=== PATIENT | female | born 2000 | race Caucasian/White ===

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

== ENCOUNTER 2023-05-01 06:35 | Inpatient (IN) | payer MEDICAID ==
[2023-05-01] MEDS ORDERED: Sodium Chloride 0.9% 20 ML SDV IV PRN (07:57)
[2023-05-01] MEDS ORDERED: ceFAZolin 2 GM in Sodium Chloride 0.9% 50 ML IV ONE (07:57)
[2023-05-01] MEDS ORDERED: Citric Acid/Sodium Citrate Solution 30 ML Cup PO ONE (07:57)
[2023-05-01] MEDS ORDERED: Sodium Chloride 0.9% 2.5 ML Syringe FLUSH PRN (07:57)
[2023-05-01] MEDS ORDERED: Sodium Chloride 0.9% 10 ML Syringe FLUSH PRN (07:57)
[2023-05-01] MEDS ORDERED: Oxytocin/0.9 % Sodium Chloride 30 UNIT/500 ML BAG IV SCH (08:00)
[2023-05-01 08:08] LABS: HEMATOCRIT 29.2 % (37.0-47.0); HEMOGLOBIN 8.3 g/dL (12.0-16.0); MEAN CORPUSCULAR HEMOGLOBIN 17.7 pg (28.0-32.0); NRBC ABSOLUTE 0.02 K/uL (0.00-0.02); NRBC PERCENT 0.2 /100WBC (0.0-0.2); PLATELET COUNT,PLT 196 K/uL (150-400); RED BLOOD CELL COUNT 4.69 M/uL (4.10-5.30); WHITE BLOOD CELL COUNT,WBC 10.87 K/uL (3.9-11.3)
[2023-05-01 08:09] LABS: BILIRUBIN,URINE NEGATIVE (NEGATIVE); COLOR,URINE YELLOW; GLUCOSE,URINE NEGATIVE (NEGATIVE); KETONES,URINE >=80 mg/dL (NEGATIVE); LEUKOCYTE ESTERASE,URINE NEGATIVE (NEGATIVE); NITRITE,URINE NEGATIVE (NEGATIVE); OCCULT BLOOD,URINE NEGATIVE (NEGATIVE); PH,URINE 5.5 (5.0-8.0); PROTEIN,URINE NEGATIVE (NEGATIVE); UROBILINOGEN,URINE 0.2 EU/dL (<2.0)
[2023-05-01 08:12] LABS: APPEARANCE,URINE HAZY
[2023-05-01 08:17] LABS: AMPHETAMINES SCREEN, URINE NEGATIVE (CUTOFF=500); BARBITURATE SCREEN,URINE NEGATIVE (CUTOFF=200); BENZODIAZEPINES SCREEN,URINE NEGATIVE (CUTOFF=150); BUPRENORPHINE SCREEN,URINE NEGATIVE (CUTOFF=10); METHADONE SCREEN, URINE NEGATIVE (CUTOFF=200); METHAMPHETAMINES SCREEN, URINE NEGATIVE (CUTOFF=500); OXYCODONE SCREEN,URINE NEGATIVE (CUT0FF=100); PCP SCREEN,URINE NEGATIVE (CUTOFF=25); THC SCREEN,URINE 20 NG/ML NEGATIVE (CUTOFF=50)
[2023-05-01] MEDS ORDERED: Morphine 2 MG/ML SYRINGE IVPUSH PRN (08:18)
[2023-05-01] MEDS ORDERED: Metoclopramide 10 MG/2 ML SDV IVPUSH PRN (08:18)
[2023-05-01] MEDS ORDERED: fentaNYL 50 MCG/ML SDV IVPUSH PRN (08:18)
[2023-05-01] MEDS ORDERED: fentaNYL 100 MCG/2 ML SDV IVPUSH PRN (08:18)
[2023-05-01] MEDS ORDERED: Acetaminophen/oxyCODONE 325-5 MG Tab PO PRN (08:18)
[2023-05-01] MEDS ORDERED: ePHEDrine 50 MG/ML SDV IVPUSH PRN (08:18)
[2023-05-01] MEDS ORDERED: Ondansetron 4 MG/2 ML SDV IVPUSH PRN ×3 (08:18→14:42)
[2023-05-01] MEDS ORDERED: droPERidol 5 MG/2 ML SDV IVPUSH PRN (08:18)
[2023-05-01] MEDS ORDERED: Naloxone 0.4 MG/ML SDV IVPUSH PRN (08:18)
[2023-05-01] MEDS ORDERED: HYDROmorphone 1 MG/ML Syringe IVPUSH PRN (08:18)
[2023-05-01] MEDS ORDERED: Albuterol 0.083% 2.5 MG/3 ML Neb Soln NEB PRN (08:18)
[2023-05-01] MEDS ORDERED: ceFAZolin 1 GM Vial ONE (08:27)
[2023-05-01] MEDS ORDERED: Oxytocin 10 Units/1 ML SDV ONE (08:27)
[2023-05-01] MEDS ORDERED: Ketorolac 30 MG/ML SDV ONE (08:27)
[2023-05-01] MEDS ORDERED: dexmedeTOMIDine HCl 200 MCG/2 ML SDV ONE (08:27)
[2023-05-01] MEDS ORDERED: Tranexamic Acid 1,000 MG/10 ML Vial ONE (08:27)
[2023-05-01] MEDS ORDERED: Dexamethasone 4 MG/ML 5 ML MDV ONE (08:27)
[2023-05-01] MEDS ORDERED: Ondansetron 4 MG/2 ML SDV ONE (08:27)
[2023-05-01] MEDS ORDERED: Water For Injection, Sterile 20 ML ONE (08:27)
[2023-05-01] MEDS ORDERED: Ropivacaine 0.5% 5 MG/ML 30 ML SDV ONE (08:27)
[2023-05-01] MEDS ORDERED: Morphine PF 10 MG/10 ML SDV ONE (08:28)
[2023-05-01] MEDS ORDERED: fentaNYL 100 MCG/2 ML SDV ONE (08:28)
[2023-05-01] MEDS ORDERED: Phenylephrine 1% 10 MG/ML SDV ONE (08:30)
[2023-05-01] MEDS ORDERED: ePHEDrine 50 MG/ML SDV ONE (08:30)
[2023-05-01 09:12] LABS: MEAN CORPUSCULAR HGB CONC 28.4 g/dL (32.0-36.0); MEAN CORPUSCULAR VOLUME 62.3 fL (83.0-99.0)
[2023-05-01] MEDS: Lactated Ringers 1,000 ML IV SCH ×2 (09:15→13:53)
[2023-05-01 09:41] LABS: C. TRACHOMATIS BY PCR NOT DETECTED; N. GONORRHOEAE BY PCR NOT DETECTED
[2023-05-01] MEDS ORDERED: Propofol 200 MG/20 ML SDV ONE (10:59)
[2023-05-01] MEDS: Acetaminophen 1,000 MG in Premix Bag 1 BAG IV SCH ×2 (13:54→20:15)
[2023-05-01] MEDS ORDERED: oxyCODONE 5 MG Tab PO PRN (14:33)
[2023-05-01] MEDS ORDERED: Naloxone 0.4 MG/ML SDV IVPUSH ONE (14:41)
[2023-05-01] MEDS ORDERED: Acetaminophen 500 MG Tab PO SCH (14:45)
[2023-05-01] MEDS ORDERED: Ketorolac 30 MG/ML SDV IVPUSH SCH (14:45)
[2023-05-01] MEDS ORDERED: Diphtheria,Pertussis(Acell),Tetanus Vaccine 0.5 ML Syringe IM ONE (14:50)
[2023-05-01] MEDS: diphenhydrAMINE 50 MG/ML SDV IVPUSH PRN ×2 (15:12→20:36)
[2023-05-01] MEDS ORDERED: Methylergonovine 0.2 MG/1 ML Amp IM PRN (16:06)
[2023-05-01] MEDS ORDERED: Carboprost Tromethamine 250 MCG/1 mL Vial IM ONE (16:10)
[2023-05-01] MEDS ORDERED: Tranexamic Acid 1,000 MG in Sodium Chloride 0.9% 100 ML IV PRN (16:11)
[2023-05-01] MEDS ORDERED: Misoprostol 200 MCG Tab RECTAL PRN (16:13)
[2023-05-01] MEDS: Ketorolac 30 MG/ML SDV IVPUSH SCH (18:15)
[2023-05-01] MEDS: Docusate Sodium 100 MG Cap PO PRN (20:35)
[2023-05-02] MEDS: Ketorolac 30 MG/ML SDV IVPUSH SCH ×3 (00:24→12:50)
[2023-05-02] MEDS: Acetaminophen 1,000 MG in Premix Bag 1 BAG IV SCH ×2 (02:09→08:25)
[2023-05-02 03:06] LABS: GROUP B STREP BY PCR NEGATIVE (NEGATIVE)
[2023-05-02 06:12] LABS: HEMATOCRIT 26.6 % (37.0-47.0); HEMOGLOBIN 7.2 g/dL (12.0-16.0)
[2023-05-02] MEDS: Acetaminophen 500 MG Tab PO SCH ×3 (08:38→20:23)
[2023-05-02] MEDS: Docusate Sodium 100 MG Cap PO PRN ×2 (08:43→20:24)
[2023-05-02] MEDS: Sodium Ferric Gluconate Cmplex 125 MG in Sodium Chloride 0.9% 100 ML IV SCH (09:39)
[2023-05-02] MEDS: Ibuprofen 800 MG Tab PO SCH ×2 (13:00→20:23)
[2023-05-02] MEDS ORDERED: Ibuprofen 800 MG Tab PO PRN (14:35)
[2023-05-03] MEDS: Acetaminophen 500 MG Tab PO SCH (02:02)
[2023-05-03] MEDS: Ibuprofen 800 MG Tab PO SCH ×2 (04:49→13:07)
[2023-05-03] MEDS: Sodium Ferric Gluconate Cmplex 125 MG in Sodium Chloride 0.9% 100 ML IV SCH (10:11)
== END 2023-05-03 17:24 | disposition home or self-care (01) | DRG 788 ==
LOC: MW.OBCHECK 06:35 → MW.OB 06:36 → MW.OBCHECK 08:08 → MW.OB 08:09 → OBSVTOIN 08:09 → MW.OB 16:40
PROVIDERS: ADMIT Obstetrics & Gynecology; ATTEND Obstetrics & Gynecology
PROC: 10D00Z1 Extraction of Products of Conception, Low, Open Approach (ICD-10-PCS; principal; 2023-05-01 10:30)
DX: O34.211 Maternal care for low transverse scar from previous cesarean delivery (principal); O35.2XX0 Maternal care for (suspected) hereditary disease in fetus, not applicable or unspecified; O99.03 Anemia complicating the puerperium; Z37.0 Single live birth
CPT/HCPCS: 36415; 59025; 76815; 76815-26; 80305-QW; 81003; 85014; 85018; 85027; 86592; 86762; 86803; 86850; 86900; 86901; 87340; 87389; 87491; 87591; 87653; A9270-GY; J0131; J0690; J1100; J1200; J1885; J2274; J2371; J2405; J2590; J2704; J2795; J2916; J3010; J3490; J7120

== ENCOUNTER 2023-06-03 23:29 | Emergency (ER) | payer MEDICAID ==
[2023-06-03] MEDS ORDERED: Sodium Chloride 0.9% 10 ML Syringe FLUSH PRN (23:34)
[2023-06-03] MEDS ORDERED: Sodium Chloride 0.9% 2.5 ML Syringe FLUSH PRN (23:34)
[2023-06-04 00:11] LABS: BASOPHILS ABSOLUTE AUTO 0.04 K/uL (0.00-0.20); BASOPHILS PERCENT AUTO 0.6 % (0.0-1.0); EOSINOPHILS ABSOLUTE AUTO 0.13 K/uL (0.00-0.45); HEMATOCRIT 39.1 % (37.0-47.0); HEMOGLOBIN 11.8 g/dL (12.0-16.0); IMMATURE GRAN ABSOLUTE AUTO 0.02 K/uL (0.00-0.05); IMMATURE GRAN PERCENT AUTO 0.3 % (0.0-0.4); LYMPHOCYTES ABSOLUTE AUTO 1.67 K/uL (1.00-4.80); MEAN CORPUSCULAR HEMOGLOBIN 22.1 pg (28.0-32.0); MEAN CORPUSCULAR HGB CONC 30.2 g/dL (32.0-36.0); MEAN CORPUSCULAR VOLUME 73.4 fL (83.0-99.0); MONOCYTES ABSOLUTE AUTO 0.28 K/uL (0.00-0.80); MONOCYTES PERCENT AUTO 4.4 % (0.0-8.0); NEUTROPHILS ABSOLUTE AUTO 4.28 K/uL (1.80-7.70); NEUTROPHILS PERCENT AUTO 66.7 % (41.0-71.0); PLATELET COUNT,PLT 157 K/uL (150-400); RED BLOOD CELL COUNT 5.33 M/uL (4.10-5.30); WHITE BLOOD CELL COUNT,WBC 6.42 K/uL (3.9-11.3)
[2023-06-04 00:42] LABS: A/G RATIO 1.2 (0.9-1.6); ALBUMIN 4.5 g/dL (3.4-5.0); BILIRUBIN TOTAL 0.4 mg/dL (0.2-1.0); CALCIUM 9.6 mg/dL (8.5-10.1); CARBON DIOXIDE,CO2 22.1 mmol/L (21.0-32.0); EST CRCL DRUG DOSING (CG) 67.15 mL/min; POTASSIUM,K 3.1 mmol/L (3.5-5.1); PROTEIN TOTAL,TP 8.4 g/dL (6.4-8.2)
[2023-06-04 00:44] LABS: LACTIC ACID 1.9 mmol/L (0.4-2.0)
[2023-06-04] MEDS ORDERED: Iopamidol 755 MG/ML 500 ML Multipack Bottle IVPUSH STA (01:29)
== END 2023-06-04 02:46 | disposition home or self-care (01) ==
LOC: MW.ED 23:29
DX: G89.18 Other acute postprocedural pain (principal)
CPT/HCPCS: 36415; 74177; 74177-26; 80053; 83605; 85025; 99284; J3490; Q9967

== ENCOUNTER 2023-11-25 07:51 | Emergency (ER) | payer SELFPAY ==
[2023-11-25] MEDS: Sodium Chloride 0.9% 1,000 ML IV ONE (08:16)
[2023-11-25 08:21] LABS: BASOPHILS ABSOLUTE AUTO 0.04 K/uL (0.00-0.20); BASOPHILS PERCENT AUTO 0.4 % (0.0-1.0); EOSINOPHILS ABSOLUTE AUTO 0.17 K/uL (0.00-0.45); EOSINOPHILS PERCENT AUTO 1.8 % (0.0-6.0); HEMATOCRIT 38.5 % (37.0-47.0); HEMOGLOBIN 12.4 g/dL (12.0-16.0); IMMATURE GRAN ABSOLUTE AUTO 0.02 K/uL (0.00-0.05); IMMATURE GRAN PERCENT AUTO 0.2 % (0.0-0.4); LYMPHOCYTES ABSOLUTE AUTO 1.99 K/uL (1.00-4.80); LYMPHOCYTES PERCENT AUTO 20.9 % (24.0-44.0); MEAN CORPUSCULAR HEMOGLOBIN 24.7 pg (28.0-32.0); MEAN CORPUSCULAR HGB CONC 32.2 g/dL (32.0-36.0); MEAN CORPUSCULAR VOLUME 76.7 fL (83.0-99.0); MEAN PLATELET VOLUME 12.5 fL (9.4-12.3); MONOCYTES ABSOLUTE AUTO 0.48 K/uL (0.00-0.80); NEUTROPHILS ABSOLUTE AUTO 6.84 K/uL (1.80-7.70); NEUTROPHILS PERCENT AUTO 71.7 % (41.0-71.0); PLATELET COUNT,PLT 218 K/uL (150-400); RED BLOOD CELL COUNT 5.02 M/uL (4.10-5.30); WHITE BLOOD CELL COUNT,WBC 9.54 K/uL (3.9-11.3)
[2023-11-25 08:26] LABS: APPEARANCE,URINE SLT CLOUDY; BILIRUBIN,URINE NEGATIVE (NEGATIVE); COLOR,URINE YELLOW; GLUCOSE,URINE NEGATIVE (NEGATIVE); KETONES,URINE NEGATIVE (NEGATIVE); LEUKOCYTE ESTERASE,URINE NEGATIVE (NEGATIVE); NITRITE,URINE NEGATIVE (NEGATIVE); OCCULT BLOOD,URINE LARGE (NEGATIVE); PROTEIN,URINE NEGATIVE (NEGATIVE); UROBILINOGEN,URINE 0.2 EU/dL (<2.0)
[2023-11-25 08:52] LABS: A/G RATIO 1.2 (0.9-1.6); ALBUMIN 4.2 g/dL (3.4-5.0); BILIRUBIN TOTAL 0.4 mg/dL (0.2-1.0); CALCIUM 8.8 mg/dL (8.5-10.1); CREATININE 0.8 mg/dL (0.6-1.0); EST CRCL DRUG DOSING (CG) 79.9 mL/min; POTASSIUM,K 3.3 mmol/L (3.5-5.1); PROTEIN TOTAL,TP 7.7 g/dL (6.4-8.2)
[2023-11-25 09:03] LABS: RBC,URINE 100-120 (0-2/HPF)
[2023-11-25 09:04] LABS: BACTERIA,URINE NOT SEEN (NEGATIVE); EPITHELIAL CELLS,URINE RARE (NONE-FEW); MUCUS,URINE LIGHT (NONE-MOD); WBC,URINE 0-2 (0-5/HPF)
== END 2023-11-25 11:08 | disposition home or self-care (01) ==
LOC: MW.ED 07:51
DX: O03.9 Complete or unspecified spontaneous abortion without complication (principal); Z75.8 Other problems related to medical facilities and other health care
CPT/HCPCS: 36415; 76817; 80053; 81001; 84702; 85025; 96360; 99284; J7030